=== PATIENT | male | born 1965 | race Caucasian/White ===

== ENCOUNTER → 2023-11-13 08:10 | Outpatient (REF) | payer BC, SELFPAY ==
[2023-11-13 09:10] LABS: HDL Cholesterol 38 mg/dl; Total Cholesterol 261 mg/dl (50-199)
[2023-11-13 09:23] LABS: Triglyceride 778 mg/dl (10-149)
[2023-11-13 09:40] LABS: PSA, Total - Screen 0.72 ng/ml (0.0-4.0)
[2023-11-13 09:49] LABS: LDL Cholesterol, Direct 87 mg/dl
[2023-11-13 11:09] LABS: Glycohemoglobin (HgbA1c) 14.1 % (4.0-5.6)
== END ==
LOC: REG 08:10
PROVIDERS: ATTENDING PHYSICIAN Family Medicine
DX: I10 Essential (primary) hypertension (principal); G47.33 Obstructive sleep apnea (adult) (pediatric); E66.01 Morbid (severe) obesity due to excess calories; R73.9 Hyperglycemia, unspecified; E78.5 Hyperlipidemia, unspecified; Z12.5 Encounter for screening for malignant neoplasm of prostate
CPT/HCPCS: 36415; 80061; 83036; 83721; G0103

== ENCOUNTER 2023-11-19 14:26 | Outpatient (RCR) | payer BC, SELFPAY ==
[2023-11-19] MEDS: [UNRECOGNIZED DRUG - OTHER] 101 MG IV (14:41)
[2023-11-19 14:52] VITALS: BP 119/84
== END 2023-12-02 23:59 | disposition home or self-care (01) ==
LOC: OID 14:26
PROVIDERS: ATTENDING PHYSICIAN Psychiatry & Neurology Neurology; FAMILY PHYSICIAN Family Medicine
DX: G43.909 Migraine, unspecified, not intractable, without status migrainosus (principal)
CPT/HCPCS: 96365; J3032

== ENCOUNTER → 2024-02-17 08:07 | Outpatient (REF) | payer BC, SELFPAY ==
[2024-02-17 08:55] LABS: ALT (SGPT) 57 U/L (0-50); AST (SGOT) 35 U/L (17-59); Albumin 4.4 g/dl (3.5-5.0); Alkaline Phosphatase 58 U/L (38-126); Blood Urea Nitrogen 19 mg/dl (9-20); Calcium 9.9 mg/dl (8.4-10.2); Carbon Dioxide 27 mmol/L (22-30); Chloride 104 mmol/L (98-107); Glucose 115 mg/dl (70-99); HDL Cholesterol 54 mg/dl; LDL Cholesterol, Calculated 46 mg/dl; Potassium 4.8 mmol/L (3.5-5.1); Sodium 140 mmol/L (135-145); Total Bilirubin 0.5 mg/dl (0.2-1.3); Total Cholesterol 118 mg/dl (50-199); Total Protein 7.2 g/dl (6.3-8.2); Triglyceride 91 mg/dl (10-149); Very Low Density Lipoprotein 18 mg/dl (0-30); eGFR > 60.00
[2024-02-17 12:02] LABS: Glycohemoglobin (HgbA1c) 5.8 % (4.0-5.6)
== END ==
LOC: REG 08:07
PROVIDERS: ATTENDING PHYSICIAN Family Medicine
DX: E66.01 Morbid (severe) obesity due to excess calories (principal); E11.9 Type 2 diabetes mellitus without complications; I10 Essential (primary) hypertension
CPT/HCPCS: 36415; 80053; 80061; 83036

== ENCOUNTER 2024-02-17 14:23 | Outpatient (RCR) | payer BC, SELFPAY ==
[2024-02-17 14:33] VITALS: BP 130/79
[2024-02-17] MEDS: [UNRECOGNIZED DRUG - OTHER] 101 MG IV (14:46)
== END 2024-03-03 23:59 | disposition home or self-care (01) ==
LOC: OID 14:23
PROVIDERS: ATTENDING PHYSICIAN Psychiatry & Neurology Neurology; FAMILY PHYSICIAN Family Medicine
DX: G43.909 Migraine, unspecified, not intractable, without status migrainosus (principal)
CPT/HCPCS: 96365; J3032

== ENCOUNTER 2024-05-11 14:23 | Outpatient (RCR) | payer BC, SELFPAY ==
[2024-05-11] MEDS: [UNRECOGNIZED DRUG - OTHER] 101 MG IV (14:41)
[2024-05-11 14:59] VITALS: BP 134/77
== END 2024-06-03 23:59 | disposition home or self-care (01) ==
LOC: OID 14:23
PROVIDERS: ATTENDING PHYSICIAN Psychiatry & Neurology Neurology; FAMILY PHYSICIAN Family Medicine
DX: G43.909 Migraine, unspecified, not intractable, without status migrainosus (principal)
CPT/HCPCS: 96365; J3032

== ENCOUNTER → 2024-05-24 07:50 | Outpatient (REF) | payer BC, SELFPAY ==
[2024-05-24 10:30] LABS: Glycohemoglobin (HgbA1c) 5.6 % (4.0-5.6)
[2024-05-26 11:02] LABS: % Free Testosterone 1.8 % (1.6-2.9); Free Testosterone 62 pg/mL (47-244); Sex Hormone Binding Globulin 32 nmol/L (19-76); Testosterone, Bioavailable 172 ng/dL (131-682); Total Testosterone 334 ng/dL (300-890)
== END ==
LOC: REG 07:50
PROVIDERS: ATTENDING PHYSICIAN Family Medicine
DX: I10 Essential (primary) hypertension (principal); G43.709 Chronic migraine without aura, not intractable, without status migrainosus; E11.9 Type 2 diabetes mellitus without complications; E66.01 Morbid (severe) obesity due to excess calories; R53.83 Other fatigue
CPT/HCPCS: 36415; 83036; 84270; 84402; 84403

== ENCOUNTER → 2024-06-14 16:23 | Outpatient (REF) | payer OTHER, BC, SELFPAY | LOC: PAVMRI 16:23 | PROVIDERS: ATTENDING PHYSICIAN Internal Medicine; FAMILY PHYSICIAN Family Medicine | DX: S59.902A Unspecified injury of left elbow, initial encounter (principal) | CPT/HCPCS: 73221 ==

== ENCOUNTER → 2024-07-17 18:00 | Outpatient (REF) | payer BC, SELFPAY ==
--- NOTE | 2024-06-21 10:49 | PN.DIAED02 ---
Referral
DSME Class Series Code: [id number]
Referred For: Diabetes Self-Management Training, Medical Nutrition Therapy, Self-Blood Glucose Monitoring, Long-Term Complication Instruction, Accute Complication Instruction, Disease Management
PHI Release Authorization Form Signed: Yes
Patient Problems:
Current Active Problems
Problem Status Onset
Type 2 diabetes mellitus without complications
Demographic
(1) Type 2 diabetes mellitus without complications
Status: Acute Code(s): E11.9 - Type 2 diabetes mellitus without complications
Patient's primary language-: Barbadian
Education: College degree
Occupation: Professional
Hours Worked/Week: > 40
- Social
Primary Support Person: Self
Primary Care Takers: Self
Living Arrangements: Self & spouse
- Learning Methods
Preferred Method: Hands-on demonstration
Barriers to Learning: None
Glycemic Control
- Blood Glucose Monitoring Assessment
Monitor Brands: OneTouch
Frequency: 4x per day
Time: fasting, before lunch, before dinner, bedtime
Patient uses Alternate Site Testing: No
Patient instructed on Use and Limitation: No
- Blood Glucose Monitoring Results
Source: meter
- Hemoglobin A1c
Date: 11/13/23
A1C Percentage (%): 14.1
Medical History of Diabetes
Family Diabetes History: Mother, Father, Sibling
Previous Diabetes Education: No
Previous visit with Dietitian: No
Complications/Comorbidity/Specialist: Hypertension
Measures
- Anthropometrics
Height: 6 ft 1 in
Actual Weight: 117.48 kg
- Blood Pressure / Pulse
Blood pressure: 134/87
Pulse: 76
- Diabetes Management
Medical Management for Diabetes: Complete physical exam (12/08/2023), Dental exam (06/21/2024), Dilated eye exam (12/24/2023)
Self-Care
- Tobacco Usage
Do you now, or have you ever smoked?: Never smoked
- Alcohol & Drugs Usage
Drinks Alcohol: No
Uses Recreational Drugs: No
- Meals & Dining
Meals & Dining: Patient skips meals: No, Food Intolerance / Allergy: Yes (Pasta triggers Migraines )
Primary Food Packing House Supervisor: Self
Primary Intel Analyst: Self
Dining Out Frequency: 1-3x per week
- Physical Activity
Physical Limitation: No
Patient participates in physical Activity: Yes
Activity Types: Combination, walking
Duration: 21-30 minutes
Frequency: 3-5x per week
Intensity: Moderate
- Self Foot-Care
Foot Problems: None
Performs Self Foot-Exam: Yes
Frequency: Daily
- Patient-Self Assessment
Diabetes Knowledge: Poor
Feelings About Diabetes: Acceptance
General Health: Good
Importance of Health: Extremely
Stress Level: Medium
Barriers to Diabetes Management: Nothing
Depression Survey Score: 3
- Diabetes Identification
Carries Diabetes Identification: No
Diabetes Identification Information Provided: No
Care Plan
- Education Needs
Patient Education Needs: Diabetes disease process, Chronic complications, Acute complications, Medication, Monitoring, Physical activity, Psychosocial Adjustment, Nutritional management, Goal setting & problem solving
Recommended Diabetes Training Program based on assessment: Outpatient Diabetes Education Program
- Plan of Care
Plan of Care:
Met with [facility] today for registration and initiation of Diabetes Self-management. Pt was recommended by his PCP due to uncontrolled Diabetes, A1C was 14.1% at the time. Patient reports that he was started on Metformin and Glipizide but both were
recently stopped by his PCP because he started exercising and watching his carbs and managed to lower his A1C down to ~5%. So he is currently not taking any diabetes medications but wa encouraged to enroll in diabetes education so he can learn about
food and learn the correction ways of how to manage his diabetes..
He has a working meter at home and was monitoring his sugars twice a day but is now monitoring once a day- Fasting.
Pt states that he has lost some weight but he is worried that he will gain it back because he recently injured his left arm and has not been able to exercise.
Pt was counseled with emphasis on need to adhere to an intensive lifestyle modification that includes healthy eating, exercising and monitoring blood glucose daily. We spent a good amount of time discussing dietary choices, carbohydrate counting
and importance of Physical activity. Goals for physical activity were established; Pt will resume walking for 30 mins 4 times/week in the evening after dinner.
--- NOTE | 2024-06-21 14:13 | PN.DIAED04 ---
Education Record
- Education Record
Class Attended: Other (Pre Registration for DSME Classes)
DSME Class Series Code: [id number]
Instructor: Nurse Practitioner (SOL Peterson)
Class Length (mins): 60
Pre-Program Knowledge: No knowledge
Pre-Test Score (%): 40
Goals
- Goal 1
Being Active: Exercise 30 minutes-5 times per week
Goals To Be Evaluated: Exercise 30 mins-5x/week
- Goal 2
Healthy Eating: Make better food choices, Reduce portion sizes
Goals To Be Evaluated: Make better food choices. Reduce portion sizes
- Goal 3
Monitoring: Follow monitoring schedule
Goals To Be Evaluated: Follow monitoring times
--- NOTE | 2024-07-24 14:36 | PN.DIAED06 ---
Meal Plans - Regular
- Meal Plan
Diabetic Meal Plan Name: 2200 calories
Breakfast - Total Carbohydrate (grams): 60
Breakfast - Starch Carbohydrate: 0
Breakfast - Fruit Carbohydrate: 0
Breakfast - Milk Carbohydrate: 0
Breakfast - Nonstarchy Vegetables: Yes
Breakfast - Meat/Protein: 2
Breakfast - Fat: 2
Morning Snack - Total Carbohydrate (grams): 15
Morning Snack - Starch Carbohydrate: 0
Morning Snack - Fruit Carbohydrate: 0
Morning Snack - Milk Carbohydrate: 0
Morning Snack - Nonstarchy Vegetables: Yes
Morning Snack - Meat/Protein: 1
Morning Snack - Fat: 0
Lunch - Total Carbohydrate (grams): 45
Lunch - Starch Carbohydrate: 0
Lunch - Fruit Carbohydrate: 0
Lunch - Milk Carbohydrate: 0
Lunch - Nonstarchy Vegetables: Yes
Lunch - Meat/Protein: 4
Lunch - Fat: 2
Afternoon Snack - Total Carbohydrate (grams): 15
Afternoon Snack - Starch Carbohydrate: 0
Afternoon Snack - Fruit Carbohydrate: 0
Afternoon Snack - Milk Carbohydrate: 0
Afternoon Snack - Nonstarchy Vegetables: Yes
Afternoon Snack - Meat/Protein: 1
Afternoon Snack - Fat: 0
Dinner - Total Carbohydrate (grams): 45
Dinner - Starch Carbohydrate: 0
Dinner - Fruit Carbohydrate: 0
Dinner - Milk Carbohydrate: 0
Dinner - Nonstarchy Vegetables: Yes
Dinner - Meat/Protein: 4
Dinner - Fat: 2
Evening Snack - Total Carbohydrate (grams): 15
Evening Snack - Starch Carbohydrate: 0
Evening Snack - Fruit Carbohydrate: 0
Evening Snack - Milk Carbohydrate: 0
Evening Snack - Nonstarchy Vegetables: Yes
Evening Snack - Meat/Protein: 0
Evening Snack - Fat: 0
--- NOTE | 2024-07-24 14:44 | PN.DIAED06 ---
Meal Plans - Regular
- Meal Plan
Diabetic Meal Plan Name: 2200 calories
Breakfast - Total Carbohydrate (grams): 60
Breakfast - Starch Carbohydrate: 0
Breakfast - Fruit Carbohydrate: 0
Breakfast - Milk Carbohydrate: 0
Breakfast - Nonstarchy Vegetables: Yes
Breakfast - Meat/Protein: 2
Breakfast - Fat: 2
Morning Snack - Total Carbohydrate (grams): 30
Morning Snack - Starch Carbohydrate: 0
Morning Snack - Fruit Carbohydrate: 0
Morning Snack - Milk Carbohydrate: 0
Morning Snack - Nonstarchy Vegetables: Yes
Morning Snack - Meat/Protein: 1
Morning Snack - Fat: 0
Lunch - Total Carbohydrate (grams): 45
Lunch - Starch Carbohydrate: 0
Lunch - Fruit Carbohydrate: 0
Lunch - Milk Carbohydrate: 0
Lunch - Nonstarchy Vegetables: Yes
Lunch - Meat/Protein: 3
Lunch - Fat: 2
Afternoon Snack - Total Carbohydrate (grams): 30
Afternoon Snack - Starch Carbohydrate: 0
Afternoon Snack - Fruit Carbohydrate: 0
Afternoon Snack - Milk Carbohydrate: 0
Afternoon Snack - Nonstarchy Vegetables: Yes
Afternoon Snack - Meat/Protein: 0.5
Afternoon Snack - Fat: 0
Dinner - Total Carbohydrate (grams): 45
Dinner - Starch Carbohydrate: 0
Dinner - Fruit Carbohydrate: 0
Dinner - Milk Carbohydrate: 0
Dinner - Nonstarchy Vegetables: Yes
Dinner - Meat/Protein: 4
Dinner - Fat: 2
Evening Snack - Total Carbohydrate (grams): 15
Evening Snack - Starch Carbohydrate: 0
Evening Snack - Fruit Carbohydrate: 0
Evening Snack - Milk Carbohydrate: 0
Evening Snack - Nonstarchy Vegetables: Yes
Evening Snack - Meat/Protein: 0
Evening Snack - Fat: 0
--- NOTE | 2024-07-31 11:44 | PN.DIAED04 ---
Education Record
- Education Record
Class Attended: Class 1
DSME Class Series Code: [id number]
Instructor: Nurse Practitioner (SOL Peterson)
Class Curriculum:
Outpatient Diabetes Education Program:
Class 1 (120 minutes)
Describe the diabetes disease process and treatment options
Diabetes management
Develop personal strategies to promote health and behavior change
Integrate psychosocial adjustment for daily living
Monitor blood glucose and other parameters. Interpret and use the results for self-management decision making
Prevent, detect, and treat acute complications
Class Length (mins): 120
Post-Class 1 Test Score (%): 81
== END ==
LOC: DES 18:00
PROVIDERS: ATTENDING PHYSICIAN Family Medicine
DX: E11.9 Type 2 diabetes mellitus without complications (principal)
CPT/HCPCS: 99078

== ENCOUNTER → 2024-07-24 18:00 | Outpatient (REF) | payer BC, SELFPAY ==
--- NOTE | 2024-08-01 09:45 | PN.DIAED04 ---
Education Record
- Education Record
Class Attended: Class 2
DSME Class Series Code: [id number]
Instructor: Registered Dietitian (Kathrine Graves, RD, LDN, CDE)
Class Curriculum:
Outpatient Diabetes Education Program:
Class 2 (120 minutes)
Incorporate nutritional management into lifestyle
Understanding nutritional value
Understanding carbohydrate counting
Class Length (mins): 120
Post-Class 2 & 3 Test Score (%): 88
== END ==
LOC: DES 18:00
PROVIDERS: ATTENDING PHYSICIAN Family Medicine
DX: E11.9 Type 2 diabetes mellitus without complications (principal)
CPT/HCPCS: 99078

== ENCOUNTER → 2024-07-31 18:00 | Outpatient (REF) | payer BC, SELFPAY ==
--- NOTE | 2024-08-01 09:46 | PN.DIAED04 ---
Education Record
- Education Record
Class Attended: Class 3
DSME Class Series Code: [id number]
Instructor: Registered Dietitian (Kathrine Graves, RD, LDN, CDE)
Class Curriculum:
Outpatient Diabetes Education Program:
Class 3 (120 minutes)
Incorporate nutritional management into lifestyle
Class Length (mins): 120
Post-Class 2 & 3 Test Score (%): 88
== END ==
LOC: DES 18:00
PROVIDERS: ATTENDING PHYSICIAN Family Medicine
DX: E11.9 Type 2 diabetes mellitus without complications (principal)
CPT/HCPCS: 99078

== ENCOUNTER → 2024-08-07 08:14 | Outpatient (REF) | payer BC, SELFPAY ==
--- NOTE | 2024-08-11 08:35 | PN.DIAED04 ---
Education Record
- Education Record
Class Attended: Class 4
DSME Class Series Code: [id number]
Instructor: Nurse Practitioner (SOL Peterson)
Class Length (mins): 120
Post-Class 4 Test Score (%): 93
== END ==
LOC: DES 08:14
PROVIDERS: ATTENDING PHYSICIAN Family Medicine
DX: E11.9 Type 2 diabetes mellitus without complications (principal)
CPT/HCPCS: 99078

== ENCOUNTER 2024-08-11 14:28 | Outpatient (RCR) | payer BC, SELFPAY ==
[2024-08-11 14:34] VITALS: BP 114/83
[2024-08-11] MEDS: [UNRECOGNIZED DRUG - OTHER] 101 MG IV (14:50)
== END 2024-08-14 09:02 | disposition home or self-care (01) ==
LOC: OID 14:28
PROVIDERS: ATTENDING PHYSICIAN Psychiatry & Neurology Neurology; FAMILY PHYSICIAN Family Medicine
DX: G43.909 Migraine, unspecified, not intractable, without status migrainosus (principal)
CPT/HCPCS: 96365; J3032

== ENCOUNTER → 2024-08-14 12:49 | Outpatient (REF) | payer BC, SELFPAY | LOC: DES 12:49 | PROVIDERS: ATTENDING PHYSICIAN Family Medicine | DX: E11.9 Type 2 diabetes mellitus without complications (principal) | CPT/HCPCS: 99078 ==

== ENCOUNTER 2024-11-10 14:26 | Outpatient (RCR) | payer BC, SELFPAY ==
[2024-11-10] MEDS: [UNRECOGNIZED DRUG - OTHER] 101 MG IV (14:49)
[2024-11-10 14:55] VITALS: BP 120/83
== END 2024-12-01 23:59 | disposition home or self-care (01) ==
LOC: OID 14:26
PROVIDERS: ATTENDING PHYSICIAN Psychiatry & Neurology Neurology; FAMILY PHYSICIAN Family Medicine
DX: G43.909 Migraine, unspecified, not intractable, without status migrainosus (principal)
CPT/HCPCS: 96365; J3032

== ENCOUNTER 2024-12-23 06:09 | Emergency (ER) | payer BC, SELFPAY ==
[2024-12-23 06:14] VITALS: BP 121/86
--- NOTE | 2024-12-23 06:32 | ED.GENMED ---
History of Present Illness
General
Chief Complaint: Flank Pain
Time Seen by Provider: 12/23/24 06:30
History of Present Illness
History of Present Illness:
TIME OF INITIAL ENCOUNTER: 6:35 AM
HPI: Patient presents with acute right flank pain. This feels similar to prior kidney stone however this is the first time that is on the right side. He has not had any fevers or chills. He has no dysuria. He has had some waves of nausea when
the pain is severe but currently denies nausea. The pain also worsens when he moves his torso certain directions.
EXAM:
GENERAL: Well appearing but appears uncomfortable
HEENT: Moist oral mucosa
CARDIOVASCULAR: No murmurs, normal heart rate, regular rhythm, No chest wall tenderness
PULMONARY: No respiratory distress, breath sounds are clear and equal
ABDOMEN: Soft with no peritoneal signs, no tenderness, no CVA tenderness
NEUROLOGIC: Excellent strength all extremities, no coordination deficits
BACK: No CVA tenderness, decreased active range of motion of the thoracolumbar spine due to pain.
PSYCHIATRIC: Appropriate mental status, normal insight and judgement
EXTREMITIES: Nontender, no edema, moves all extremities equally
SKIN: No rash, no lesions
NUMBER AND COMPLEXITY OF PROBLEMS ADDRESSED AT THE ENCOUNTER
� Chronic conditions affecting care: History of kidney stones, diabetes
� Acute Exacerbation and/or Progression of Chronic Illness: This is an acute problem
� Differential Diagnosis includes: Ureteral stone, pyelonephritis, musculoskeletal back pain
AMOUNT AND/OR COMPLEXITY OF DATA TO BE REVIEWED AND ANALYZED
� I performed an independent evaluation of and my interpretation is:
EKG:
CT: I personally viewed CT and agree with radiology interpretation. Calcifications noted but no clear sign of ureteral stone.
X-rays:
Laboratory Studies: White count and hemoglobin are normal
Other:
� Review of other/old records: I reviewed records, the patient had right-sided laser lithotripsy with ureteral stent [place] [address] [place]
� Clinical information was obtained by an independent historian: None needed
� Prescriptions/Medications Considered but not given: Patient already has narcotics at home
� Further testing considered but not performed:
RISK OF COMPLICATIONS AND/OR MORBIDITY OR MORTALITY OF PATIENT MANAGEMENT
� Social determinants of health affecting care: Lives at home
� Discussion with other providers:
� Escalation of care including admission/observation vs risk of discharge considered: The patient appears uncomfortable upon arrival. He was given Toradol, fluids, and Zofran.
ANY OTHER UPDATES:
7:27 AM: No improvement after Toradol was given. Will give a dose of Dilaudid. Urinalysis shows no hematuria. Renal function normal. The patient does seem to have a positional component, he struggled with trying to get out of the stretcher and
agrees that there could be a musculoskeletal low back pain component. No clear sign of stone. We did give a dose of Dilaudid as well.
8:05 AM: The patient does report some improvement. He already has narcotic at home (Vicodin and rarely takes). Will add Flexeril.
Past History
Past History
ED Past Medical History: HTN and Other (Migraines)
ED Past Surgical History: Orthopedic and Other (hernia)
Social History
Tobacco: Non-smoker
Alcohol: None
Living: with family
Family History
Family History: Diabetes and CAD
Phy Exam
Physical Exam
Physical Exam:
See HPI
Course
Orders/Labs/Results
Orders:
Orders
12/23/24 06:36
CT Abd/pel Without Iv Or Oral Urgent
Comment:
Reason For Exam: R flank pain
0.9% Sodium Chloride 1000 ml [Nss] 1,000 ml IV BOLUS
Ketorolac [Toradol] 15 mg IV NOW STA
Ondansetron Injectable [Zofran] 4 mg IV NOW STA
12/23/24 06:40
Complete Blood Count/With Diff Urgent
Comprehensive Metabolic Panel Urgent
Urine Culture Reflexed from UA [Urinalysis Reflex To Culture] Urgent
Date Specimen was Collected: 12/23/24
Time Specimen was Collected: 06:26
Urine Microscopic Reflex Cult Urgent
12/23/24 07:27
HYDROmorphone [Dilaudid] 1 mg IV NOW STA
12/23/24 07:40
Ondansetron Injectable [Zofran] 4 mg IV NOW STA
Abnormal Lab Results
12/23/24
06:40
MCH 32.2 H pg
(27.0-31.0)
Absolute Lymphs (auto) 0.9 L 10^3/uL
(1.2-3.4)
Neutrophils % 76.2 H %
(42.2-75.2)
Lymphocytes % 14.6 L %
(20.5-51.1)
Glucose 144 H mg/dl
(70-99)
Urine Ketones 3+ A
(Negative)
Urine Albumin (Reflex) 1+ A
(Neg - Trace)
12/23/24 06:40
12/23/24 06:40
Vital Signs
Initial and Last Documented VS:
Initial Vital Signs
Temp Pulse Resp BP Pulse Ox
37.2 C 58 20 121/86 97
12/23/24 06:14 12/23/24 06:14 12/23/24 06:14 12/23/24 06:14 12/23/24 06:14
Last Documented Vital Signs
Temp Pulse Resp BP Pulse Ox
37.1 C 67 18 131/92 100
12/23/24 07:29 12/23/24 07:29 12/23/24 07:29 12/23/24 07:29 12/23/24 07:29
*Critical Care Note
Total Time (30-74mins, 75-104mins- exclusive of procedures): Not Applicable
ED Attending Note
-
Portions of this chart may have been created with voice recognition software.� Occasional wrong word or��sound alike� substitutions may have occurred due to the inherent limitations of voice recognition software.
Discharge Plan
Departure
Patient Disposition: Home (Routine Discharge)
Date of Disposition: 12/23/24
Time of Disposition: 08:06
Patient with high blood pressure during this ER visit?: Yes
Discharge Problem:
Musculoskeletal back pain
Instructions: Flank Pain (DC), BLOOD PRESSURE
Prescriptions:
New
cyclobenzaprine 10 mg tablet
10 mg PO TIDPRN PRN (Reason: muscle spasm) Qty: 15 0RF
No Action
Ibuprofen
1 mg PO Q6HPRN PRN (Reason: pain)
aspirin 81 MG tablet,delayed release (DR/EC)
1 tab PO DAILY
hydrocodone-acetaminophen [Vicodin] 1 EACH tablet
1 ea PO PRN PRN (Reason: pain)
qznoocgioe-svdjysepzv-joq-cod [Fioricet with Codeine] 1 EACH capsule
1 ea PO PRN PRN (Reason: migraine)
Algesis 1 EACH tablet
2 ea PO DAILY
lisinopril 10 mg Tablet
10 mg PO DAILY
zolpidem [Ambien] 10 mg Tablet
12.5 mg PO HS PRN (Reason: Insomina )
acetaminophen 500 mg Capsule
500 mg PO Q6H PRN (Reason: pain)
melatonin 10 mg Tablet
20 mg PO DAILY
atorvastatin 40 mg Tablet
40 mg PO HS
Referrals:
Thomas Ibarra MD [Family Provider] -
Stand Alone Forms: Return to Work
Activity Restrictions/Additional Instructions:
The CAT scan shows no sign of kidney stone another cause for your pain. Blood work is unremarkable. There was no sign of urinary tract/kidney infection. I am sending a prescription for Flexeril to your pharmacy. You could consider trying
obsc-knk-xehnvzv Salonpas/lidocaine patches. Follow-up with your primary care doctor. Return here if worse or other concerns. I recommend not taking Vicodin at the same time you take Flexeril as they can both be sedating.
Interventions
Interventions:
*Risk Screen - Suicide Last Done: 12/23/24 06:14
*General Assessment Last Done: 12/23/24 06:14
*Neglect/Abuse Screening Last Done: 12/23/24 06:14
*ED- Fall Risk Assessment Last Done: 12/23/24 06:14
*ED COVID-19 Vaccine History Last Done: 12/23/24 06:14
FO-Hniqcy-Pgjeivbwnq Assessment Last Done: 12/23/24 06:52
ED-Male Genitourinary Assessment Last Done: 12/23/24 06:52
Discharge Date and Time
Print Language: CZECH
[2024-12-23] MEDS: NSS 1000 IV (06:44)
[2024-12-23] MEDS: ZOFRAN 4 MG IV ×2 (06:46→07:52)
[2024-12-23] MEDS: TORADOL 15 MG IV (06:47)
[2024-12-23 06:49] VITALS: BMI 31.1
[2024-12-23 06:56] LABS: % Basophils 0.5 % (0-2); % Eosinophils 0.9 % (0-6); % Immature Granulocytes 0.5 % (0-0.5); % Lymphocytes 14.6 % (20.5-51.1); % Monocytes 7.3 % (1.7-9.3); % Neutrophils 76.2 % (42.2-75.2); Absolute Eosinophils 0.1 10^3/uL (0-0.7); Absolute Lymphocytes 0.9 10^3/uL (1.2-3.4); Absolute Monocytes 0.5 10^3/uL (0.1-0.6); Absolute Neutrophils 4.8 10^3/uL (1.4-6.5); Hematocrit 45.5 % (39.0-52.0); Hemoglobin 15.8 g/dL (13.0-18.0); Mean Corp Hgb Conc. 34.7 g/dL (33.0-37.0); Mean Corpuscular Hgb 32.2 pg (27.0-31.0); Mean Corpuscular Volume 92.7 fL (80.0-94.0); Mean Platelet Volume 9.8 fL (7.4-10.4); Nucleated Red Blood Cells % 0 % (-); Platelet Count 186 10^3/uL (130-400); Red Blood Cell Count 4.91 10^6/uL (4.70-6.10); Red Cell Dist. Width 12.8 % (11.5-14.5); White Blood Cell Count 6.3 10^3/uL (4.8-10.8)
[2024-12-23 07:05] LABS: Urine Albumin 1+ (Neg - Trace); Urine Bilirubin Negative (Negative); Urine Character Clear (Clear); Urine Color Yellow; Urine Glucose Negative (Negative); Urine Ketone 3+ (Negative); Urine Leukocyte Negative (Negative); Urine Nitrite Negative (Negative); Urine Occult Blood Negative (Negative); Urine Specific Gravity 1.025 (<1.030); Urine Urobilinogen Negative (Neg - 1+)
[2024-12-23 07:26] LABS: ALT (SGPT) 38 U/L (0-50); AST (SGOT) 27 U/L (17-59); Albumin 4.1 g/dl (3.5-5.0); Alkaline Phosphatase 74 U/L (38-126); Blood Urea Nitrogen 19 mg/dl (9-20); Calcium 9.8 mg/dl (8.4-10.2); Carbon Dioxide 24 mmol/L (22-30); Chloride 103 mmol/L (98-107); Estimated Creatinine Clearance > 125 ml/min; Glucose 144 mg/dl (70-99); Potassium 3.8 mmol/L (3.5-5.1); Sodium 135 mmol/L (135-145); Total Bilirubin 0.9 mg/dl (0.2-1.3); Total Protein 6.5 g/dl (6.3-8.2); eGFR > 60.00
[2024-12-23 07:29] VITALS: BP 131/92
[2024-12-23 07:31] LABS: Urine Mucus Many
[2024-12-23 07:32] LABS: Urine Amorphous Seen
[2024-12-23 07:33] LABS: Urine Hyaline Cast 0-2 /LPF (0-2)
[2024-12-23] MEDS: DILAUDID 1 MG IV (07:33)
[2024-12-23 07:34] LABS: Urine Red Blood Cell 0-2 /HPF (0-2)
--- NOTE | 2024-12-23 09:50 | EDRN ---
Reviewed discharge instructions with patient. Verbalized understanding. Ambulated with steady gait to the lobby to wait for his .
[2024-12-23 10:01] VITALS: BP 133/79
== END 2024-12-23 09:55 | disposition home or self-care (01) ==
LOC: EMR 06:09
PROVIDERS: Emergency Medicine; EMERGENCY PHYSICIAN Emergency Medicine; FAMILY PHYSICIAN Family Medicine
DX: R10.9 Unspecified abdominal pain (principal); M54.50 Low back pain, unspecified; R11.0 Nausea; I10 Essential (primary) hypertension; G43.909 Migraine, unspecified, not intractable, without status migrainosus; Z87.442 Personal history of urinary calculi
CPT/HCPCS: 99284; 96374; 96375 ×2; 96361; 96376; 74176; 80053; 81003; 81015; 85025

== ENCOUNTER → 2024-12-30 06:52 | Outpatient (REF) | payer BC, SELFPAY | LOC: MRI 06:52 | PROVIDERS: ATTENDING PHYSICIAN Pain Medicine Interventional Pain Medicine; FAMILY PHYSICIAN Family Medicine | DX: M54.16 Radiculopathy, lumbar region (principal) | CPT/HCPCS: 72148 ==

== ENCOUNTER 2025-02-02 14:33 | Outpatient (RCR) | payer BC, SELFPAY ==
[2025-02-02] MEDS: [UNRECOGNIZED DRUG - OTHER] 101 MG IV (14:53)
[2025-02-02 15:01] VITALS: BP 106/73
== END 2025-02-05 10:45 | disposition home or self-care (01) ==
LOC: OID 14:33
PROVIDERS: ATTENDING PHYSICIAN Psychiatry & Neurology Neurology; FAMILY PHYSICIAN Family Medicine
DX: G43.909 Migraine, unspecified, not intractable, without status migrainosus (principal)
CPT/HCPCS: 96365; J3032

== ENCOUNTER → 2025-02-16 06:59 | Outpatient (REF) | payer BC, SELFPAY ==
[2025-02-16 08:26] LABS: ALT (SGPT) 59 U/L (0-50); AST (SGOT) 32 U/L (17-59); Albumin 4.9 g/dl (3.5-5.0); Alkaline Phosphatase 62 U/L (38-126); Blood Urea Nitrogen 22 mg/dl (9-20); Calcium 9.6 mg/dl (8.4-10.2); Carbon Dioxide 27 mmol/L (22-30); Chloride 106 mmol/L (98-107); Glucose 90 mg/dl (70-99); HDL Cholesterol 78 mg/dl; LDL Cholesterol, Calculated 45 mg/dl; Potassium 4.9 mmol/L (3.5-5.1); Sodium 140 mmol/L (135-145); Total Bilirubin 0.9 mg/dl (0.2-1.3); Total Cholesterol 133 mg/dl (50-199); Total Protein 7.2 g/dl (6.3-8.2); Triglyceride 53 mg/dl (10-149); Very Low Density Lipoprotein 10 mg/dl (0-30); eGFR > 60.00
[2025-02-16 08:47] LABS: Glycohemoglobin (HgbA1c) 5.3 % (4.0-5.6)
[2025-02-16 08:54] LABS: PSA, Total - Screen 1.12 ng/ml (0.0-4.0)
== END ==
LOC: REG 06:59
PROVIDERS: ATTENDING PHYSICIAN Family Medicine
DX: E11.59 Type 2 diabetes mellitus with other circulatory complications (principal); I10 Essential (primary) hypertension; G47.33 Obstructive sleep apnea (adult) (pediatric); R79.89 Other specified abnormal findings of blood chemistry; G89.4 Chronic pain syndrome
CPT/HCPCS: 36415; 80053; 80061; 83036; G0103

== ENCOUNTER 2025-03-28 08:18 | Outpatient (RCR) | payer BC, SELFPAY | END 2025-03-28 23:59 | disposition home or self-care (01) | LOC: RPT 08:18 | PROVIDERS: ATTENDING PHYSICIAN Pain Medicine Interventional Pain Medicine; FAMILY PHYSICIAN Family Medicine | DX: M54.16 Radiculopathy, lumbar region (principal); Z73.6 Limitation of activities due to disability; R26.89 Other abnormalities of gait and mobility; M62.81 Muscle weakness (generalized); X50.0XXD Overexertion from strenuous movement or load, subsequent encounter; Y93.89 Activity, other specified; Y92.89 Other specified places as the place of occurrence of the external cause; Y99.0 Civilian activity done for income or pay | CPT/HCPCS: 97110; 97112; 97162 ==

== ENCOUNTER 2025-04-26 15:00 | Outpatient (RCR) | payer BC, SELFPAY | END 2025-04-26 23:59 | disposition home or self-care (01) | LOC: RPT 15:00 | PROVIDERS: ATTENDING PHYSICIAN Pain Medicine Interventional Pain Medicine; FAMILY PHYSICIAN Family Medicine | DX: M54.16 Radiculopathy, lumbar region (principal); Z73.6 Limitation of activities due to disability; R26.89 Other abnormalities of gait and mobility; M62.81 Muscle weakness (generalized); X50.0XXD Overexertion from strenuous movement or load, subsequent encounter; Y93.89 Activity, other specified; Y92.89 Other specified places as the place of occurrence of the external cause; Y99.0 Civilian activity done for income or pay | CPT/HCPCS: 97010; 97110; 97112; 97140 ==

== ENCOUNTER 2025-05-04 13:48 | Outpatient (RCR) | payer BC, SELFPAY ==
[2025-05-04 14:00] VITALS: BP 134/84
[2025-05-04] MEDS: [UNRECOGNIZED DRUG - OTHER] 101 MG IV (14:08)
== END 2025-05-07 09:41 | disposition home or self-care (01) ==
LOC: OID 13:48
PROVIDERS: ATTENDING PHYSICIAN Psychiatry & Neurology Neurology; FAMILY PHYSICIAN Family Medicine
DX: G43.909 Migraine, unspecified, not intractable, without status migrainosus (principal)
CPT/HCPCS: 96365; J3032

== ENCOUNTER 2025-05-24 17:53 | Outpatient (RCR) | payer BC, SELFPAY | END 2025-05-24 23:59 | disposition home or self-care (01) | LOC: RPT 17:53 | PROVIDERS: ATTENDING PHYSICIAN Pain Medicine Interventional Pain Medicine; FAMILY PHYSICIAN Family Medicine | DX: M54.16 Radiculopathy, lumbar region (principal); Z73.6 Limitation of activities due to disability; R26.89 Other abnormalities of gait and mobility; M62.81 Muscle weakness (generalized); X50.0XXD Overexertion from strenuous movement or load, subsequent encounter; Y93.89 Activity, other specified; Y92.89 Other specified places as the place of occurrence of the external cause; Y99.0 Civilian activity done for income or pay | CPT/HCPCS: 97010; 97110; 97112 ==

== ENCOUNTER → 2025-05-25 07:29 | Outpatient (REF) | payer BC, SELFPAY ==
[2025-05-25 09:36] LABS: ALT (SGPT) 55 U/L (0-50); AST (SGOT) 33 U/L (17-59); Albumin 4.7 g/dl (3.5-5.0); Alkaline Phosphatase 76 U/L (38-126); Blood Urea Nitrogen 21 mg/dl (9-20); Calcium 10.3 mg/dl (8.4-10.2); Carbon Dioxide 27 mmol/L (22-30); Chloride 106 mmol/L (98-107); Glucose 80 mg/dl (70-99); HDL Cholesterol 81 mg/dl; LDL Cholesterol, Calculated 51 mg/dl; Potassium 5.2 mmol/L (3.5-5.1); Sodium 140 mmol/L (135-145); Total Protein 7.4 g/dl (6.3-8.2); Very Low Density Lipoprotein 11 mg/dl (0-30); eGFR > 60.00
== END ==
LOC: REG 07:29
PROVIDERS: ATTENDING PHYSICIAN Family Medicine
DX: I10 Essential (primary) hypertension (principal); E11.9 Type 2 diabetes mellitus without complications
CPT/HCPCS: 36415; 80053; 80061

== ENCOUNTER → 2025-05-31 07:22 | Outpatient (REF) | payer BC, SELFPAY | LOC: RCS 07:22 | PROVIDERS: ATTENDING PHYSICIAN Family Medicine | DX: I10 Essential (primary) hypertension (principal); E66.01 Morbid (severe) obesity due to excess calories; E11.9 Type 2 diabetes mellitus without complications | CPT/HCPCS: 93017 ==

== ENCOUNTER → 2025-06-27 08:15 | Outpatient (REF) | payer BC, SELFPAY | LOC: RCS 08:15 | PROVIDERS: ATTENDING PHYSICIAN Family Medicine | DX: R94.39 Abnormal result of other cardiovascular function study (principal) | CPT/HCPCS: 93017; 93350 ==

== ENCOUNTER 2025-08-10 14:21 | Outpatient (RCR) | payer BC, SELFPAY ==
[2025-08-10] MEDS: [UNRECOGNIZED DRUG - OTHER] 101 MG IV (15:02)
[2025-08-10 15:10] VITALS: BP 129/87
[2025-08-10 15:40] VITALS: BP 116/78
== END 2025-08-13 10:34 | disposition home or self-care (01) ==
LOC: OID 14:21
PROVIDERS: ATTENDING PHYSICIAN Psychiatry & Neurology Neurology; FAMILY PHYSICIAN Family Medicine
DX: G43.909 Migraine, unspecified, not intractable, without status migrainosus (principal)
CPT/HCPCS: 96365; J3032

== ENCOUNTER → 2025-09-03 07:04 | Outpatient (REF) | payer BC, SELFPAY ==
[2025-09-03 09:06] LABS: ALT (SGPT) 40 U/L (0-50); AST (SGOT) 27 U/L (17-59); Albumin 4.6 g/dl (3.5-5.0); Alkaline Phosphatase 67 U/L (38-126); Blood Urea Nitrogen 20 mg/dl (9-20); Calcium 9.2 mg/dl (8.4-10.2); Carbon Dioxide 29 mmol/L (22-30); Chloride 104 mmol/L (98-107); Glucose 85 mg/dl (70-99); Potassium 4.0 mmol/L (3.5-5.1); Sodium 138 mmol/L (135-145); Total Protein 7.1 g/dl (6.3-8.2); eGFR > 60.00
[2025-09-03 10:14] LABS: Ferritin 25.6 ng/ml (17.9-464.0)
[2025-09-03 17:26] LABS: Hepatitis B Surface Antigen Negative (Negative)
[2025-09-03 17:44] LABS: Hepatitis C Antibody Negative (Negative)
== END ==
LOC: REG 07:04
PROVIDERS: FAMILY PHYSICIAN Family Medicine
DX: E11.59 Type 2 diabetes mellitus with other circulatory complications (principal); I10 Essential (primary) hypertension; G47.33 Obstructive sleep apnea (adult) (pediatric); G47.00 Insomnia, unspecified; G43.709 Chronic migraine without aura, not intractable, without status migrainosus; E29.1 Testicular hypofunction; M17.11 Unilateral primary osteoarthritis, right knee; N20.0 Calculus of kidney; E66.01 Morbid (severe) obesity due to excess calories; R74.8 Abnormal levels of other serum enzymes
CPT/HCPCS: 36415; 80053; 82728; 86803; 87340